=== PATIENT | female | born 1980 | race Caucasian/White ===

== ENCOUNTER 2022-08-15 06:40 | Observation (INO) | payer OTHER, SELFPAY ==
[2022-08-15] VITALS (10 sets, daily range): BP systolic 98–179; BP diastolic 63–100; PULSE 53–95; RESP 13–20; TEMP 35.9–37.1; O2SAT 97–100; BMI 30.5
--- NOTE | ~2022-08-15 | US_ITS ---
EXAMINATION: US right upper quadrant DATE: 08/15/2022 07:58 INDICATION: Epigastric and right upper quadrant abdominal pain. TECHNIQUE: Multiple grayscale and Doppler ultrasound images of the abdomen were obtained. COMPARISON: None FINDINGS: The visualized portions of the head, body, and tail of the pancreas are normal. The liver i s normal without focal lesion. There is normal flow in main portal vein. The gallbladder is normal in size and contains a gallstone. No gallbladder wall thickening or sonographic Orellana sign. The common duct is normal and measures 5 mm. IMPRESSION: 1. Cholelithiasis. No evidence of acute cholecystitis. Reviewed, dictated and finalized at location A.
--- NOTE | ~2022-08-15 | MR_ITS ---
EXAMINATION: MR MRCP wo/w con/w 3D wo ind DATE: 08/15/2022 14:28 INDICATION: Right upper quadrant pain TECHNIQUE: Magnetic resonance imaging (MRI) of the abdomen was performed without and with intravenous contrast. Sequences included coronal T2-weighted SS-FSE ARC, coronal T2-weighted FS SS-FSE, coronal T2-weighted 2D FS FIESTA, Water:Coronal LAVA-Flex, sagittal T2-weighted SS-FSE ARC, axial SSFSE ARC, axial 3D DualEcho, axial DWI B=600, axial T1-weighted LAVA, FAT:Coronal LAVA-Flex, and coronal in and opposed phase LAVA-Flex. Thick-slab T2-weighted FRFSE-XL images were obtained for magnetic resonance cholangiopancreatography (MRCP). Maximum intensity projection 3-D reconstructions of the volumetric data were created by the technologist. Postcontrast sequences included a time course of axial T1-weig hted LAVA, FAT:Coronal LAVA-Flex, coronal in and opposed phase LAVA-Flex, and Water:Coronal LAVA-Flex . COMPARISON: Ultrasound from today CONTRAST: Multihance, 13 cc FINDINGS: ABDOMEN MRI: The liver, spleen, pancreas, and adrenal glands are normal. A stone is present in the ga llbladder near the neck. There is a small amount of pericholecystic fluid. No definite gallbladder wa ll thickening is seen. The left kidney is unremarkable. There is a 9 mm cyst of the right kidney. The re are no pathologically enlarged abdominal lymph nodes. No dilated loops of bowel are present. ABDOMEN MRCP: There is no intrahepatic or extrahepatic biliary dilatation. No stones or stricture of the common bile duct. The pancreatic duct is normal in course and caliber. IMPRESSION: 1. Cholelithiasis and pericholecystic fluid. Findings are equivocal for acute cholecystitis. Consider nuclear hepatobiliary scan. Reviewed, dictated and finalized at location A. IMPRESSION: 1. Cholelithiasis and pericholecystic fluid. Findings are equivocal for acute c holecystitis. Consider nuclear hepatobiliary scan.
--- NOTE | 2022-08-15 07:13 | ED.ABDPAIN ---
HPI - Abdominal Pain General Chief Complaint: Abdominal Pain Stated Complaint: abd pain Time Seen by Provider: 08/15/22 07:03 History of Present Illness HPI narrative: Patient is a 41-year-old female with history of cholelithiasis who presents ER with epigastric and right upper quadrant abdominal pain. Sudden onset at 4:30 AM. Radiates to her back. Associate with nausea and vomiting. No diarrhea. Denies fevers or chills or sweats. Patient has history of IV drug abuse and is on Suboxone. Patient is found no alleviating factors nor aggravating factors. Related Data Allergies Allergy/AdvReac Type Severity Reaction Status Date / Time Penicillins Allergy Hives Verified 08/15/22 07:32 Review of Systems Review of Systems: All systems reviewed & are unremarkable except as noted in HPI and below Constitutional: Constitutional: Denies chills, Denies fatigue and Denies fever(s) ENT: Denies nasal congestion and Denies sore throat Cardiovascular: Cardiovascular: Denies chest pain and Denies rapid heart rate Respiratory: Respiratory: Denies cough and Denies dyspnea Gastrointestinal: Gastrointestinal: Reports abdominal pain, Denies diarrhea, Reports nausea and Reports vomiting Genitourinary: Genitourinary: Denies nocturia, Denies dysuria and Denies flank pain PMFSH Past Medical History Medical History (Updated 08/15/22 @ 09:24 by Shakir Gaspar MD) Cholelithiasis Surgical History Surgical History (Updated 08/15/22 @ 07:19 by Shakir Gaspar MD) History of section History of hand surgery right boxers fracture Social History Social History (Updated 08/15/22 @ 07:20 by Shakir Gaspar MD) Substance use: former Substance use type: opiates and IV drugs Exam Narrative: GENERAL: Uncomfortable-appearing, well-nourished, and in no acute distress. HEAD: Normocephalic, atraumatic. ENT: Mucous membranes moist. CHEST: Clear to auscultation. No respiratory distress. HEART: Regular rate and rhythm. Normal peripheral pulses. ABDOMEN: Soft, epigastric and right upper quadrant tenderness without guarding, nondistended. EXTREMITIES: Normal range of motion. No edema. SKIN: Warm, dry, no rash. NEURO: Alert and oriented x3. PSYCH: Normal mood and affect. Course Course Emergency Course: Patient with persistent pain, 7 out of 10 and earlier it was 10/10. Patient with elevated liver enzymes. Will admit for MRCP and further pain control. Vital Signs Vital signs: Vital Signs Pulse Rate 55 L 08/15/22 06:50 Respiratory Rate 18 08/15/22 06:50 Blood Pressure 179/92 H 08/15/22 06:50 Pulse Oximetry 100 08/15/22 06:50 Pulse Rate 53 L 08/15/22 08:27 Respiratory Rate 13 08/15/22 08:27 Blood Pressure 161/100 H 08/15/22 07:19 Pulse Oximetry 100 08/15/22 08:51 MDM - Abdominal Pain Lab Data 08/15/22 07:17 08/15/22 07:06 Labs: Lab Results 08/15/22 08/15/22 Range/Units 07:06 07:17 WBC 12.9 H (4.5-10.0) K/mm3 RBC 4.79 (4.2-5.4) M/mm3 Hgb 14.0 (12.0-15.0) g/dL Hct 42.7 (37.0-47.0) % MCV 89.1 (80-100) fl MCH 29.2 (26-34) pg MCHC 32.8 (32-36) g/dl RDW 13.1 (11.5-14.5) % Plt Count 372 (150-375) k/mm3 MPV 9.5 (7.4-10.4) fl Immature Gran % (Auto) 1.6 H (0-0.5) % Neut % (Auto) 63.3 (45.5-73.1) % Lymph % (Auto) 25.5 (18.3-44.2) % [place] % (Auto) 7.8 (2.6-8.5) % Eos % (Auto) 1.4 (0-4.4) % Baso % (Auto) 0.4 (0.2-1.2) % Lymph # (Auto) 3.30 H (0.9-3.2) K/mm3 [place] # (Auto) 1.0 H (0.1-0.6) K/mm3 Eos # (Auto) 0.2 (0-0.3) K/mm3 Baso # (Auto) 0.1 (0.0-0.1) K/mm3 Abs Immat Gran (auto) 0.21 H (0.00-0.031) K/mm3 Absolute Neuts (auto) 8.2 H (1.3-6.7) K/mm3 Absolute Nucleated RBC 0.0 (0.0-0.012) K/mm3 Nucleated RBC % 0.0 (0.0-0.2) % Sodium 138 (137-145) mmol/L Potassium 3.8 (3.4-5.0) mmol/L Chloride 100 (98-107) mmol/L Carbon Dioxide 32 H
[2022-08-15 07:29] LABS: Basophils Absolute Auto 0.1 K/mm3 (0.0-0.1); Basophils Percent Auto 0.4 % (0.2-1.2); Eosinophils Absolute Auto 0.2 K/mm3 (0-0.3); Eosinophils Percent Auto 1.4 % (0-4.4); Hematocrit 42.7 % (37.0-47.0); Immature Granulocyte Absolute 0.21 K/mm3 (0.00-0.031); Immature Granulocyte Percent A 1.6 % (0-0.5); Lymphocytes Percent Auto 25.5 % (18.3-44.2); Mean Corpuscular HGB Conc 32.8 g/dl (32-36); Mean Corpuscular Hemoglobin 29.2 pg (26-34); Mean Corpuscular Volume 89.1 fl (80-100); Mean Platelet Volume 9.5 fl (7.4-10.4); Monocytes Percent Auto 7.8 % (2.6-8.5); Neutrophils Absolute Auto 8.2 K/mm3 (1.3-6.7); Neutrophils Percent Auto 63.3 % (45.5-73.1); Platelet Count Result 372 k/mm3 (150-375); Red Blood Count 4.79 M/mm3 (4.2-5.4); Red Cell Distribution Width 13.1 % (11.5-14.5); White Blood Count 12.9 K/mm3 (4.5-10.0)
[2022-08-15 07:32] LABS: Alanine Aminotransferase 247 U/L (6-35); Albumin Level 4.5 g/dL (3.5-5.1); Alkaline Phosphatase 90 U/L (38-126); Anion Gap 6 mmol/L (8-16); Aspartate Amino Transferase 141 U/L (14-36); Bilirubin,Total 0.3 mg/dL (0.2-1.3); Blood Urea Nitrogen 17 mg/dL (7-17); Calcium 8.7 mg/dL (8.4-10.2); Carbon Dioxide 32 mmol/L (22-30); Chloride 100 mmol/L (98-107); Estimated CRCL calculation 92 ml/min; Estimated Glomerular Filt Rate > 60; Glucose 140 mg/dL (65-110); Lipase 75 U/L (23-300); Potassium 3.8 mmol/L (3.4-5.0); Sodium 138 mmol/L (137-145)
[2022-08-15] MEDS: KETOROLAC 30 MG/ML VIAL (*BKC) IV PUSH ×2 (07:33→10:42)
[2022-08-15] MEDS: ONDANSETRON INJ 4 MG/2 ML VIAL IV PUSH ×2 (07:33→10:43)
[2022-08-15] MEDS: SODIUM CHLORIDE 0.9% IV 1,000 ML 999 ML IV CONT (07:33)
[2022-08-15 09:53] LABS: Appearance Urine Turbid (Clear); Bacteria Urine None Seen /hpf; Bilirubin Urine Negative (Negative); Blood Urine 2+ (Negative); Color Urine Yellow (Yellow); Glucose Urine UA Negative (Negative); Ketones Urine Negative (Negative); Leukocyte Esterase Ur Negative LEU/UL (Negative); Nitrate Urine Negative (Negative); Non Pathogenic Casts 0-2; Protein Urine Negative (Negative); RBC Urine 21-50 /hpf (0-2); Specific Grav Ur 1.021 (1.001-1.035); Squamous Epithelial Cell Urine Occasional /hpf (Few); Urobilinogen Urine 0.2 mg/dL (<2.0); WBC Urine 0-5 /hpf; pH Urine 7.5 (5.0-9.0)
[2022-08-15 09:54] LABS: Add Urine Microscopic? YES
[2022-08-15] MEDS: SODIUM CHLORIDE 0.9% IV 1,000 ML 125 ML IV CONT (10:43)
--- NOTE | 2022-08-15 13:25 | PM.IMHP ---
H&P: HPI History of Present Illness Date/Time: 08/15/22 13:25 Chief Complaint: Abdominal pain. Narrative: This is a 41-year-old female with history of cholelithiasis who presented to the emergency department early this morning via private vehicle from home for evaluation of abdominal pain. Patient provides the following history. She was wakened from sleep at about 04:30 with severe pain in the epigastric and right upper quadrant regions radiating through to the back. She was feeling nauseated at that time reports having several episodes of emesis as well. Symptoms are similar to though she has experienced with previous gallbladder attacks. No fever, chills, sweats, or diarrhea. Workup in the ED was significant for a white blood cell count of 12.9, AST 141, ALT 247, total bilirubin 0.3, alkaline phosphatase 90, lipase 75. Right upper quadrant ultrasound showed cholelithiasis without evidence of acute cholecystitis. She was given a L bolus of fluid, Zofran, and Toradol without much benefit she is being admitted in this setting for supportive care and surgery consultation. Review of Systems Review of Systems: Twelve systems were reviewed and are negative except for as per HPI. [facility] Past Medical History Medical History (Updated 08/15/22 @ 13:37 by Brooke Allan PA-C) Cholelithiasis Exercise-induced asthma History of narcotic addiction On suboxone. Spinal stenosis Surgical History Surgical History (Updated 08/15/22 @ 13:31 by Brooke Allan PA-C) History of section History of hand surgery Repair right boxer's fracture. Family History Family History (Updated 08/15/22 @ 13:31 by Brooke Allan PA-C) Other Family history non-contributory Social History Social History (Updated 08/15/22 @ 13:31 by Brooke Allan PA-C) Social History: Surrogate medical decision maker: Nini Rush, mother. Code status: Full code. Smoking packs per day: 1 Smoking cigarettes per day: 20.0 Smoking status: Current every day smoker Tobacco type: cigarettes Alcohol intake: former Substance use: former Substance use type: opiates and IV drugs Lack of Transportation: No Lack of Food: Never True Current Housing: I Have Housing Concerned About Future Housing: YES Difficulty Paying Gas/Electric Bills: No Difficulty Paying for Meds: No Currently Unemployed: YES Education: Trade/Vocational Certificate Difficulty w/ Childcare or Family Care: No Additional living arrangements comments: Lives in [place]. Additional occupation/education comments: Currently unemployed. Spiritual care concerns: No Meds Home Medications and Allergies Home Medications Medication Instructions Recorded Confirmed Type albuterol sulfate 90 mcg/actuation 90 mcg inhalation Q4H PRN 08/15/22 08/15/22 History aerosol inhaler Shortness Of Breath Or Wheezing buprenorphine 8 mg-naloxone 2 mg 0.5 film buccal QID 08/15/22 08/15/22 History sublingual film (Suboxone) Allergies Allergy/AdvReac Type Severity Reaction Status Date / Time Penicillins Allergy Hives Verified 08/15/22 07:32 Vital Signs Vital Signs - 24 hr 08/15/22 06:50 08/15/22 07:17 08/15/22 07:19 Temperature Pulse Rate 55 L 56 L 58 L Respiratory Rate 18 18 18 Blood Pressure 179/92 H 161/100 H Pulse Oximetry 100 98 Oxygen Delivery 08/15/22 08:27 08/15/22 08:51 08/15/22 10:17 Temperature Pulse Rate 53 L 60 Respiratory Rate 13 18 Blood Pressure 144/63 H Pulse Oximetry 100 100 99 Oxygen Delivery 08/15/22 11:11 08/15/22 10:50 Temperature 96.8 F L Pulse Rate 57 L Respiratory Rate 16 Blood Pressure 151/73 H Pulse Oximetry 100 Oxygen Delivery Room Air H&P: Results Labs Labs: Short CBC 08/15/22 Range/Units 07:17 WBC 12.9 H (4.5-10.0) K/mm3 Hgb 14.0 (12.0-15.0) g/dL Hct 42.7 (37.0-47.0) % Plt Count 372 (150-375) k/mm3 BMP 08/15/22 07:06
[2022-08-15 14:22] LABS: Hepatitis B Surface Antigen Negative (Negative)
[2022-08-15 14:28] LABS: HAV RESULT Negative (Negative); Hepatitis B Core IgM Result Negative (Negative)
[2022-08-15 14:40] LABS: Hepatitis C Virus Antibody Negative (Negative)
--- NOTE | 2022-08-15 17:58 | PM.CNGS ---
Assessment and Plan Assessment and plan (1) Cholecystitis with cholelithiasis: Code(s): K80.10 - Calculus of gallbladder with chronic cholecystitis without obstruction Status: Acute Assessment and Plan: exam completely benign at this time, long discussion with patient regarding timing of cholecystectomy and she would like to be discharged if tolerating diet and have cholecystectomy urgently as outpatient, will start low fat diet at this time and if tolerate okay to DC from surgical standpoint with p.o. antibiotics and low fat diet, will schedule for urgent cholecystectomy as outpatient if discharged home (2) History of narcotic addiction: Code(s): F11.21 - Opioid dependence, in remission Status: Acute Assessment and Plan: avoid narcotics, continue treatment and meds (3) Tobacco abuse: Code(s): Z72.0 - Tobacco use Status: Acute Assessment and Plan: patient not interested in cessation at this time History of Present Illness Consult details Consult date: 08/15/22 Reason for consult: abdominal pain Requesting physician: Brooke Allan PA-C Narrative: The patient is old female presenting to the emergency department complaining of severe right upper quadrant, epigastric abdominal pain. The patient reports that the pain awoke her from sleep early this morning and has been unrelenting and constant since that time. The patient reports associated nausea and vomiting, anorexia. The patient reports that she has had similar episodes the past and has been diagnosed with cholelithiasis. Workup in the emergency department, including imaging, is significant for cholecystitis, cholelithiasis. The patient has been since admitted to the medical service. Upon evaluation today, the patient reports she feels much improved and is largely back to her baseline. Review of Systems Constitutional: Constitutional: Reports as per HPI, Reports anorexia, Denies chills, Denies fatigue, Denies fever(s), Denies lethargy, Denies malaise, Reports poor appetite, Denies snoring, Denies weakness, Denies weight gain and Denies weight loss Eyes: Eyes: Reports no additional eye complaints ENT: Reports system reviewed and no additional complaints, except as documented Cardiovascular: Cardiovascular: Reports no additional cardiovascular complaints Respiratory: Respiratory: Reports no additional respiratory complaints Gastrointestinal: Gastrointestinal: Reports as per HPI, Reports abdominal pain, Reports bloating, Reports GI cramping, Reports early satiety, Reports heartburn, Reports nausea and Reports vomiting Genitourinary: Genitourinary: Reports no additional female genitourinary complaints Musculoskeletal: Musculoskeletal: Reports no additional musculoskeletal complaints Integumentary/Breasts: Skin/Breast: Reports system reviewed and no additional complaints, except as docu Neurologic: Reports system reviewed and no additional complaints, except as documented Psychiatric: Psychiatric: Reports no additional psychiatric complaints Endocrine: Endocrine: Reports no additional endocrine complaints Hematologic/Lymphatic: Hematologic/Lymphatic: Reports no additional hematologic/lymphatic complaints Allergic/Immunologic: Allergic/Immunologic: Reports no additional allergic/immunologic complaints PMFSH Past Medical History Medical History Cholelithiasis Exercise-induced asthma History of narcotic addiction On suboxone. Spinal stenosis Surgical History Surgical History History of section History of hand surgery Repair right boxer's fracture. Family History Family History Other Family history non-contributory Social History Social History Social History: Surrogate medical de
--- NOTE | 2022-08-15 22:21 | PM.SD2 ---
Same Day Admit/Disch: HPI History of Present Illness Chief complaint: Abdominal pain. Narrative: This is a 41-year-old female with history of cholelithiasis who presented to the emergency department early this morning via private vehicle from home for evaluation of abdominal pain. Patient provides the following history. She was wakened from sleep at about 04:30 with severe pain in the epigastric and right upper quadrant regions radiating through to the back. She was feeling nauseated at that time reports having several episodes of emesis as well. Symptoms are similar to though she has experienced with previous gallbladder attacks. No fever, chills, sweats, or diarrhea. Workup in the ED was significant for a white blood cell count of 12.9, AST 141, ALT 247, total bilirubin 0.3, alkaline phosphatase 90, lipase 75. Right upper quadrant ultrasound showed cholelithiasis without evidence of acute cholecystitis. She was given a L bolus of fluid, Zofran, and Toradol without much benefit she is being admitted in this setting for supportive care and surgery consultation. [facility] Past Medical History Medical History Cholelithiasis Exercise-induced asthma History of narcotic addiction On suboxone. Spinal stenosis Surgical History Surgical History History of section History of hand surgery Repair right boxer's fracture. Family History Family History Other Family history non-contributory Social History Social History Social History: Surrogate medical decision maker: Nini Rush, mother. Code status: Full code. Smoking packs per day: 1 Smoking cigarettes per day: 20.0 Smoking status: Current every day smoker Alcohol intake: former Substance use: former Substance use type: opiates and IV drugs Lack of Transportation: No Lack of Food: Never True Current Housing: I Have Housing Concerned About Future Housing: YES Difficulty Paying Gas/Electric Bills: No Difficulty Paying for Meds: No Currently Unemployed: YES Education: Trade/Vocational Certificate Difficulty w/ Childcare or Family Care: No Additional living arrangements comments: Lives in [place]. Additional occupation/education comments: Currently unemployed. Spiritual care concerns: No Same Day Admit/Disch: Med Pre-admit Medications Home Medications Medication Instructions Recorded Confirmed Type albuterol sulfate 90 mcg/actuation 90 mcg inhalation Q4H PRN 08/15/22 08/16/22 History aerosol inhaler Shortness Of Breath Or Wheezing buprenorphine 8 mg-naloxone 2 mg 0.5 film buccal QID 08/15/22 08/16/22 History sublingual film (Suboxone) Exam Narrative: General: Well-developed, nontoxic-appearing female supine in bed in no distress. Weight: 70.9 kg. BMI: 30.5. HEENT: Normocephalic, atraumatic. PERRL, EOMI. Sclera anicteric. Oral mucosa moist. Neck: Supple. Respiratory: Lungs are clear to auscultation bilaterally. Cardiovascular: Regular rate and rhythm with S1-S2. Gastrointestinal: Abdomen is soft and nondistended with positive bowel sounds. She is tender to deep palpation the right upper quadrant. Negative Orellana sign. No guarding or rebound tenderness. Skin: Warm and dry. Extremities: No cyanosis, clubbing, or edema. Radial and pedal pulses intact. Neurological: Alert. Cranial nerves 2-12 are grossly intact. Speech is clear. No facial asymmetry. No gross focal deficits to casual conversation. Psychiatric: Pleasant and cooperative with normal mood and affect. Judgment and insight intact. DS: Data Data Completed and Pending Completed studies during hospitalization: Imaging Upper Quadrant Ultrasound 08/15/22 08:01 IMPRESSION: 1. Cholelithiasis. No evidence of acute chol
--- NOTE | 2022-08-16 04:36 | PC.NURSE ---
Pt called at 0425, pt states I am feeling 5/10 pain. I think I took 2 of 500mg Ibuprofen. Pt was instructed to take alternate ibuprofen and Tylenol as needed until pt is able to call Dr. Miller office for further instructions on plan of care.
== END 2022-08-15 23:00 | disposition home or self-care (01) ==
LOC: ANHED 09:24 → ANH3MEDSUR 09:45
PROVIDERS: Emergency Medicine; Physician Assistant; Admitting Provider Family Medicine; Emergency Provider Emergency Medicine; Visit Provider Family Medicine
DX: K80.10 Calculus of gallbladder with chronic cholecystitis without obstruction (principal); D72.829 Elevated white blood cell count, unspecified; R74.01 Elevation of levels of liver transaminase levels; R63.0 Anorexia; Z68.30 Body mass index [BMI] 30.0-30.9, adult; F17.210 Nicotine dependence, cigarettes, uncomplicated; F11.21 Opioid dependence, in remission; Z79.51 Long term (current) use of inhaled steroids
CPT/HCPCS: 36415; 74183; 76376; 76705; 80053; 80074; 81001; 81025; 83690; 85025; 96361; 96374; 96375; 96376; 99285; A9577; G0378; G0379; J1885; J2405; J7030

== ENCOUNTER 2022-08-16 08:46 | Observation (INO) | payer OTHER, SELFPAY ==
[2022-08-16] VITALS (10 sets, daily range): BP systolic 143–172; BP diastolic 63–96; PULSE 58–74; RESP 16–18; TEMP 36.4–36.9; O2SAT 97–100; BMI 29.2
--- NOTE | 2022-08-16 09:28 | ED.ABDPAIN ---
HPI - Abdominal Pain General Chief Complaint: Abdominal Pain <ESTEPHANIA Miramontes Last Filed: 08/16/22 11:53> Stated Complaint: returning for gallbladder issues <ESTEPHANIA Miramontes Last Filed: 08/16/22 11:53> Time Seen by Provider: 08/16/22 08:57 <ESTEPHANIA Miramontes Last Filed: 08/16/22 11:53> Source: patient and old records reviewed <ESTEPHANIA Miramontes Last Filed: 08/16/22 11:53> Mode of arrival: ambulatory <ESTEPHANIA Miramontes Last Filed: 08/16/22 11:53> Limitations: no limitations <ESTEPAHNIA Miramontes Last Filed: 08/16/22 11:53> History of Present Illness HPI narrative: Patient is a 41-year-old female who presents ED with report of right upper quadrant abdominal pain. Patient reports she was seen in the ED yesterday and diagnosed with cholelithiasis. She was admitted to the hospitalist service and seen by general surgery. She underwent MRCP that showed cholelithiasis with pericholecystic fluid, equivocal for acute cholecystitis. Recommended HIDA scan. Patient was feeling much better yesterday evening while inpatient, pain had improved. She wanted to try going home and have outpatient cholecystectomy. Was discharged. Patient reports she developed worsening pain around 4:30 AM this morning after eating a bag of chips. Pain has been constant since then. She tried taking ibuprofen without relief. She reports nausea, but denies vomiting. Denies fevers. Denies diarrhea or constipation. Patient has a history of narcotic abuse and is on Suboxone. <ESTEPHANIA Miramontes Last Filed: 08/16/22 11:53> Related Data Home Medications: Home Medications Medication Instructions Recorded Confirmed albuterol sulfate 90 mcg/actuation 90 mcg inhalation Q4H PRN 08/15/22 08/16/22 aerosol inhaler Shortness Of Breath Or Wheezing buprenorphine 8 mg-naloxone 2 mg 0.5 film buccal QID 08/15/22 08/16/22 sublingual film (Suboxone) <Mi Jones PA-C - Last Filed: 08/16/22 11:53> Allergies/Adverse Reactions: Allergies Allergy/AdvReac Type Severity Reaction Status Date / Time Penicillins Allergy Hives Verified 08/16/22 12:25 <Mi Jones PA-C - Last Filed: 08/16/22 11:53> Review of Systems Review of Systems: CONSTITUTIONAL: Denies fever, chills, or sweats. CARDIOVASCULAR: Denies chest pain. RESPIRATORY: Denies dyspnea. GASTROINTESTINAL: See HPI. GENITOURINARY: Denies dysuria or hematuria. SKIN: Denies rash or itching. MUSCULOSKELETAL: Denies back pain, joint pain, or myalgia. <Mi Jones PA-C - Last Filed: 08/16/22 11:53> All systems reviewed & are unremarkable except as noted in HPI and below <Mi Jones PA-C - Last Filed: 08/16/22 11:53> [facility] Past Medical History Medical History: Medical History Cholelithiasis Exercise-induced asthma History of narcotic addiction On suboxone. Spinal stenosis <ESTEPHANIA Miramontes Last Filed: 08/16/22 11:53> Surgical History Surgical History: Surgical History History of section History of hand surgery Repair right boxer's fracture. <ESTEPHANIA Miramontes Last Filed: 08/16/22 11:53> Family History Family History: Family History Other Family history non-contributory <ESTEPHANIA Miramontes Last Filed: 08/16/22 11:53> Social History Social History: Social History Social History: Surrogate medical decision maker: Nini Rush, mother. Code status: Full code. Smoking packs per day: 1 Smoking cigarettes per day: 20.0 Smoking status: Current every day smoker Alcohol intake: former Substance use: former Substance use type: former substance user
[2022-08-16] MEDS: SODIUM CHLORIDE 0.9% IV 1,000 ML 999 ML IV CONT (09:33)
[2022-08-16] MEDS: ONDANSETRON INJ 4 MG/2 ML VIAL IV PUSH ×4 (09:34→16:26)
[2022-08-16] MEDS: MORPHINE SULFATE (*CRX) 4 MG/ML INJ IV PUSH (09:34)
[2022-08-16 10:25] LABS: Basophils Absolute Auto 0.1 K/mm3 (0.0-0.1); Basophils Percent Auto 0.3 % (0.2-1.2); Eosinophils Absolute Auto 0.1 K/mm3 (0-0.3); Eosinophils Percent Auto 0.7 % (0-4.4); Hematocrit 40.2 % (37.0-47.0); Hemoglobin 13.4 g/dL (12.0-15.0); Immature Granulocyte Absolute 0.14 K/mm3 (0.00-0.031); Immature Granulocyte Percent A 0.9 % (0-0.5); Lymphocytes Absolute Auto 2.15 K/mm3 (0.9-3.2); Lymphocytes Percent Auto 13.3 % (18.3-44.2); Mean Corpuscular HGB Conc 33.3 g/dl (32-36); Mean Corpuscular Hemoglobin 29.8 pg (26-34); Mean Corpuscular Volume 89.5 fl (80-100); Mean Platelet Volume 9.4 fl (7.4-10.4); Monocytes Percent Auto 6.4 % (2.6-8.5); Neutrophils Absolute Auto 12.7 K/mm3 (1.3-6.7); Neutrophils Percent Auto 78.4 % (45.5-73.1); Platelet Count Result 330 k/mm3 (150-375); Red Blood Count 4.49 M/mm3 (4.2-5.4); Red Cell Distribution Width 13.3 % (11.5-14.5); White Blood Count 16.2 K/mm3 (4.5-10.0)
[2022-08-16 10:37] LABS: Alanine Aminotransferase 158 U/L (6-35); Albumin Level 4.2 g/dL (3.5-5.1); Alkaline Phosphatase 95 U/L (38-126); Anion Gap 8 mmol/L (8-16); Aspartate Amino Transferase 55 U/L (14-36); Bilirubin,Total 0.3 mg/dL (0.2-1.3); Blood Urea Nitrogen 17 mg/dL (7-17); Calcium 8.4 mg/dL (8.4-10.2); Carbon Dioxide 28 mmol/L (22-30); Chloride 102 mmol/L (98-107); Estimated CRCL calculation 108 ml/min; Estimated Glomerular Filt Rate > 60; Glucose 127 mg/dL (65-110); Lipase 64 U/L (23-300); Potassium 3.7 mmol/L (3.4-5.0); Sodium 138 mmol/L (137-145)
[2022-08-16] MEDS: HYDROmorphone HCL INJ (*CRX) 1 MG/ML SYR IV PUSH (10:52)
[2022-08-16] MEDS: metroNIDAZOLE 500 MG/ISO 100ML 500 MG/100 ML BAG 100 MG IVPB ×2 (11:14→20:10)
--- NOTE | 2022-08-16 12:25 | ADMGEN ---
This patient, Keara Rush, was admitted to Medical Room 261-01. Patient/family oriented to hospital policies and general routines including ID bracelet, bed and alarms, visiting hours, pain management, procedures, bathroom and other care routines, personal items, smoking policy, room service/diet, and visiting hours. Information on how to activate the Rapid Response Team has been discussed. Patient/Family are encouraged to report perceived risks to care and to ask questions if they do not understand what they are told or what they should do.
[2022-08-16] MEDS: SODIUM CHLORIDE 0.9% IV 1,000 ML 100 ML IV CONT ×2 (12:32→23:08)
[2022-08-16] MEDS: HYDROmorphone HCL INJ (*CRX) 1 MG/ML SYR 0.5 MG IV PUSH ×2 (12:47→16:26)
[2022-08-16 14:02] LABS: Beta HCG Quantitative < 2.39 mIU/ML
--- NOTE | 2022-08-16 14:09 | PM.IMHP ---
H&P: HPI History of Present Illness Date/Time: 08/16/22 14:10 Chief Complaint: Abdominal pain. Narrative: This is a 41-year-old female with history of cholelithiasis who presented to the emergency department via private vehicle from home for evaluation of abdominal pain. She was admitted to the hospital yesterday morning with symptomatic cholelithiasis and she improved significantly with supportive care and was tolerating a low-fat diet. She was eager for discharge and Dr. Miller felt she could be discharged home last evening with urgent outpatient cholecystectomy. After discharge she took a shower and not long after she got home she had a bag of chips as she was hungry. Once again she was wakened from sleep with severe right upper quadrant pain and nausea. She return to the ED and her labs today are significant for a WBC count of 16.2, AST, ALT 158, lipase 64. Blood pressures are running a bit high in the 150s but her other vital signs are stable and she has been afebrile. Review of Systems Review of Systems: Twelve systems were reviewed and are negative except for as per HPI. [facility] Past Medical History Medical History Cholelithiasis Exercise-induced asthma History of narcotic addiction On suboxone. Spinal stenosis Surgical History Surgical History History of section History of hand surgery Repair right boxer's fracture. Family History Family History Other Family history non-contributory Social History Social History Social History: Surrogate medical decision maker: Nini Rush, mother. Code status: Full code. Smoking packs per day: 1 Smoking cigarettes per day: 20.0 Smoking status: Current every day smoker Alcohol intake: former Substance use: former Substance use type: former substance user Lack of Transportation: No Lack of Food: Sometimes True Current Housing: I Have Housing Concerned About Future Housing: YES Difficulty Paying Gas/Electric Bills: No Difficulty Paying for Meds: YES Currently Unemployed: YES Education: Trade/Vocational Certificate Difficulty w/ Childcare or Family Care: No Additional living arrangements comments: Lives in [place]. Additional occupation/education comments: Currently unemployed. Spiritual care concerns: No Meds Home Medications and Allergies Home Medications Medication Instructions Recorded Confirmed Type albuterol sulfate 90 mcg/actuation 90 mcg inhalation Q4H PRN 08/15/22 08/16/22 History aerosol inhaler Shortness Of Breath Or Wheezing buprenorphine 8 mg-naloxone 2 mg 0.5 film buccal QID 08/15/22 08/16/22 History sublingual film (Suboxone) Allergies Allergy/AdvReac Type Severity Reaction Status Date / Time Penicillins Allergy Hives Verified 08/16/22 12:25 Vital Signs Vital Signs - 24 hr 08/16/22 08:55 08/16/22 09:21 08/16/22 09:41 Temperature 97.8 F Pulse Rate 71 Respiratory Rate 16 Blood Pressure 172/96 H 151/67 H Pulse Oximetry 98 97 98 Oxygen Delivery 08/16/22 09:53 08/16/22 10:00 08/16/22 10:24 Temperature Pulse Rate Respiratory Rate Blood Pressure Pulse Oximetry 97 97 98 Oxygen Delivery 08/16/22 10:30 08/16/22 12:30 08/16/22 14:00 Temperature 97.6 F Pulse Rate 74 Respiratory Rate 18 Blood Pressure 155/75 H Pulse Oximetry 100 98 Oxygen Delivery Room Air Exam Narrative: General: Well-developed female lying on her right side in bed in moderate pain. Weight: 67.8 kg. BMI: 29.2. HEENT: PERRL, EOMI. Sclera anicteric. Tacky mucous membranes. Neck: Supple. Respiratory: Lungs are clear to auscultation bilaterally. Cardiovascular: Regular rate and rhythm with S1-S2. Gastrointestinal: Abdo
--- NOTE | 2022-08-16 16:54 | PM.CNGS ---
Assessment and Plan Assessment and plan (1) Cholecystitis with cholelithiasis: Qualifiers: Biliary obstruction: without biliary obstruction Cholecystitis acuity: acute Cholelithiasis location: gallbladder Qualified Code(s): K80.00 - Calculus of gallbladder with acute cholecystitis without obstruction Code(s): K80.10 - Calculus of gallbladder with chronic cholecystitis without obstruction Status: Acute Assessment and Plan: IV abx, OR tomorrow for urgent cholecystectomy History of Present Illness Consult details Consult date: 08/16/22 Reason for consult: abdominal pain Requesting physician: Mi Jones PA-C Narrative: The pt is a 41 y/o F that was recently discharged home c plans for urgent outpt cholecystectomy representing to ED c/o severe upper abd pain, N/V. Pt was doing well but reported that she had a bag of chips after dc last night. Pt awoke in the middle of the night c recurrent sx and pain was severe and uncontrollable c po analgesia. Pt also c N/V. Review of Systems Review of Systems: All systems reviewed & are unremarkable except as noted in HPI and below PMFSH Past Medical History Medical History Cholelithiasis Exercise-induced asthma History of narcotic addiction On suboxone. Spinal stenosis Surgical History Surgical History History of section History of hand surgery Repair right boxer's fracture. Family History Family History Other Family history non-contributory Social History Social History Social History: Surrogate medical decision maker: Nini Rush, mother. Code status: Full code. Smoking packs per day: 1 Smoking cigarettes per day: 20.0 Smoking status: Current every day smoker Alcohol intake: former Substance use: former Substance use type: former substance user Lack of Transportation: No Lack of Food: Sometimes True Current Housing: I Have Housing Concerned About Future Housing: YES Difficulty Paying Gas/Electric Bills: No Difficulty Paying for Meds: YES Currently Unemployed: YES Education: Trade/Vocational Certificate Difficulty w/ Childcare or Family Care: No Additional living arrangements comments: Lives in [place]. Additional occupation/education comments: Currently unemployed. Spiritual care concerns: No Meds Home Medications and Allergies Home Medications Medication Instructions Recorded Confirmed Type albuterol sulfate 90 mcg/actuation 90 mcg inhalation Q4H PRN 08/15/22 08/16/22 History aerosol inhaler Shortness Of Breath Or Wheezing buprenorphine 8 mg-naloxone 2 mg 0.5 film buccal QID 08/15/22 08/16/22 History sublingual film (Suboxone) Allergies Allergy/AdvReac Type Severity Reaction Status Date / Time Penicillins Allergy Hives Verified 08/16/22 12:25 Vital Signs Vital Signs - 24 hr 08/16/22 08:55 08/16/22 09:21 08/16/22 09:41 Temperature 36.6 C Pulse Rate 71 Respiratory Rate 16 Blood Pressure 172/96 H 151/67 H Pulse Oximetry 98 97 98 Oxygen Delivery 08/16/22 09:53 08/16/22 10:00 08/16/22 10:24 Temperature Pulse Rate Respiratory Rate Blood Pressure Pulse Oximetry 97 97 98 Oxygen Delivery 08/16/22 10:30 08/16/22 12:30 08/16/22 14:00 Temperature 36.4 C Pulse Rate 74 Respiratory Rate 18 Blood Pressure 155/75 H Pulse Oximetry 100 98 Oxygen Delivery Room Air 08/16/22 14:40 Temperature 36.4 C Pulse Rate 58 L Respiratory Rate 18 Blood Pressure 164/80 H Pulse Oximetry 97 Oxygen Delivery Exam Const: General: cooperative, no acute distress, uncomfortable and overweight HENMT: Head: normal to inspection, normocephalic and atraumatic Eyes: General: appearance normal, both eyes
[2022-08-16] MEDS: PROMETHAZINE HCL 25 MG/ML AMPUL 12.5 MG IV PUSH (20:08)
[2022-08-16] MEDS: ACETAMINOPHEN 325 MG TABLET 650 MG PO (23:05)
--- NOTE | 2022-08-17 18:33 | OP_ITS ---
DATE OF PROCEDURE: 08/17/2022 PREOPERATIVE DIAGNOSIS: Acute cholecystitis, cholelithiasis. POSTOPERATIVE DIAGNOSIS: Acute cholecystitis, cholelithiasis, hydrops, cholecystitis. ANESTHESIA: General. ESTIMATED BLOOD LOSS: 10. COMPLICATIONS: None. BRIEF HISTORY: This is a 41-year-old female presenting to the emergency department complaining of severe right upper quadrant upper gastric abdominal pain. Workup in the emergency department including imaging significant for acute cholecystitis. INDICATIONS FOR SURGERY: A 41-year-old female with acute cholecystitis, cholelithiasis. OPERATIVE FINDINGS: Acute hydrops, cholecystitis. DESCRIPTION OF PROCEDURE: The patient was taken to the operating room and placed in the supine position. After adequate induction of general anesthesia, the patient was prepped and draped in the normal sterile fashion. A time-out was then done and verified the patient's identify as well as the procedure being performed. I began by making a 5 mm incision in the infra-umbilical region, through this a Veress needle was placed into the peritoneal cavity. CO2 gas was then insufflated through the Veress needle. After adequate pneumoperitoneum was achieved, the Veress needle was removed. I then placed a 5 mm Optiview trocar under direct visualization into this incision. Once in the peritoneum, the obturator was removed just leaving the trocar in the abdomen. The laparoscope was then placed through this trocar site. Under direct visualization, I placed a further 12 mm subxiphoid port, as well as 2 additional 5 mm ports in the right abdomen. The gallbladder was identified and noted to be severely distended and inflamed. There were multiple omental adhesions to the gallbladder all indicative of acute inflammation. These adhesions were taken down both bluntly and sharply with Bovie cautery. At this point, the gall bladder was decompressed with an ovarian needle. Hydrops cholecystitis was identified at this point. Once decompressed, I was able to place a grasper at the dome of the gallbladder. This was retracted superiorly and anteriorly up over the liver. A second retractor was placed in infundibulum and retracted laterally. This allowed us to visualize the elements of the triangle of Calot. Using very careful lateral to medial dissection, I was able to identify all elements of the triangle of Calot. The cystic duct was noted in its entirety from its proximal insertion into the gallbladder to its distal junction with a common hepatic and common bile duct junction. At this point, a proximal cystic duct was further skeletonized, clipped, and transected. The cystic artery was then visualized in its entirety. Again, this structure was skeletonized, clipped, and transected. At this point, I used a Bovie cautery to take down the peritoneal attachments to the gallbladder of the underlying liver bed. This was somewhat difficult given the amount of inflammation in the posterior space. Once the gallbladder specimen was completely detached, an Endopouch was placed through the 12 mm port site and the gallbladder specimen was then removed. It all be sent to pathology for further review. At this point, I copiously irrigated the right upper quadrant. Some mild oozing was noted in the liver bed and controlled with the Bovie cautery. No other pathology was noted. At this point, the 12 mm trocar was removed and a johnny cone was placed through the trocar site. Under direct visualization, the fascia was closed with a 0 Vicryl suture using the johnny cone and a suture passer. The abdomen was then desufflated and all ports were removed. The skin was closed with 4-0 Monocryl subcuticular suture at all incisions. The patient tolerated the procedure well and was extubated postoperatively. Sh
[2022-08-17 21:00] VITALS: BP 120/74; PULSE 92; RESP 16; TEMP 37.2; O2SAT 97
[2022-08-17] MEDS: metroNIDAZOLE 500 MG/ISO 100ML 500 MG/100 ML BAG 100 MG IVPB (21:30)
[2022-08-17] MEDS: HYDROcodone/acetaminophen (*CRX) 5-325 MG TABLET 1 TAB PO (21:31)
--- NOTE | 2022-08-17 21:37 | PC.NURSE ---
Paper documentation exists on this patient due to [facility] downtime on 08/17/22 from 0030 to [1930] .
[2022-08-18 00:59] VITALS: BP 113/75; PULSE 67; RESP 16; TEMP 36.6; O2SAT 99
[2022-08-18] MEDS: HYDROcodone/acetaminophen (*CRX) 5-325 MG TABLET 1 TAB PO ×3 (02:47→15:12)
[2022-08-18 05:22] LABS: Basophils Percent Auto 0.2 % (0.2-1.2); Eosinophils Percent Auto 0.2 % (0-4.4); Hematocrit 38.9 % (37.0-47.0); Hemoglobin 12.6 g/dL (12.0-15.0); Immature Granulocyte Absolute 0.12 K/mm3 (0.00-0.031); Immature Granulocyte Percent A 0.7 % (0-0.5); Lymphocytes Absolute Auto 2.44 K/mm3 (0.9-3.2); Lymphocytes Percent Auto 13.8 % (18.3-44.2); Mean Corpuscular HGB Conc 32.4 g/dl (32-36); Mean Corpuscular Hemoglobin 29.6 pg (26-34); Mean Corpuscular Volume 91.3 fl (80-100); Mean Platelet Volume 9.6 fl (7.4-10.4); Monocytes Absolute Auto 1.5 K/mm3 (0.1-0.6); Monocytes Percent Auto 8.6 % (2.6-8.5); Neutrophils Absolute Auto 13.6 K/mm3 (1.3-6.7); Neutrophils Percent Auto 76.5 % (45.5-73.1); Platelet Count Result 326 k/mm3 (150-375); Red Blood Count 4.26 M/mm3 (4.2-5.4); Red Cell Distribution Width 13.2 % (11.5-14.5); White Blood Count 17.7 K/mm3 (4.5-10.0)
[2022-08-18 05:32] VITALS: BP 97/60; PULSE 82; RESP 16; TEMP 36.5; O2SAT 100
[2022-08-18 05:34] LABS: Alanine Aminotransferase 109 U/L (6-35); Albumin Level 4.1 g/dL (3.5-5.1); Alkaline Phosphatase 86 U/L (38-126); Anion Gap 9 mmol/L (8-16); Aspartate Amino Transferase 57 U/L (14-36); Bilirubin,Total 0.3 mg/dL (0.2-1.3); Blood Urea Nitrogen 8 mg/dL (7-17); Calcium 8.8 mg/dL (8.4-10.2); Carbon Dioxide 26 mmol/L (22-30); Chloride 103 mmol/L (98-107); Estimated CRCL calculation 108 ml/min; Estimated Glomerular Filt Rate > 60; Glucose 109 mg/dL (65-110); Potassium 3.6 mmol/L (3.4-5.0); Sodium 138 mmol/L (137-145)
[2022-08-18] MEDS: metroNIDAZOLE 500 MG/ISO 100ML 500 MG/100 ML BAG 100 MG IVPB (06:18)
[2022-08-18 08:01] LABS: Chloride 100 mmol/L (98-107); Hematocrit 44.3 % (37.0-47.0); Hemoglobin 15.1 g/dL (12.0-15.0); Mean Corpuscular HGB Conc 34.1 g/dl (32-36); Mean Corpuscular Volume 87.9 fl (80-100); Mean Platelet Volume 9.4 fl (7.4-10.4); Platelet Count Result 358 k/mm3 (150-375); Potassium 3.9 mmol/L (3.4-5.0); Red Blood Count 5.04 M/mm3 (4.2-5.4); Red Cell Distribution Width 13.3 % (11.5-14.5); Sodium 134 mmol/L (137-145); White Blood Count 17.8 K/mm3 (4.5-10.0)
[2022-08-18 08:02] LABS: Anion Gap 6 mmol/L (8-16); Aspartate Amino Transferase 39 U/L (14-36); Bilirubin,Total 0.7 mg/dL (0.2-1.3); Blood Urea Nitrogen 5 mg/dL (7-17); Carbon Dioxide 28 mmol/L (22-30); Estimated CRCL calculation 142 ml/min; Estimated Glomerular Filt Rate > 60; Glucose 110 mg/dL (65-110); Magnesium 2.1 mg/dL (1.6-2.3)
[2022-08-18 08:05] LABS: Alanine Aminotransferase 140 U/L (6-35); Albumin Level 4.2 g/dL (3.5-5.1); Alkaline Phosphatase 98 U/L (38-126); Total Protein 7.6 g/dL (6.3-8.2)
--- NOTE | 2022-08-18 09:35 | PM.PNGS ---
Progress Note: A&P Assessment and Plan (1) Cholecystitis with cholelithiasis: Qualifiers: Biliary obstruction: without biliary obstruction Cholecystitis acuity: acute Cholelithiasis location: gallbladder Qualified Code(s): K80.00 - Calculus of gallbladder with acute cholecystitis without obstruction Code(s): K80.10 - Calculus of gallbladder with chronic cholecystitis without obstruction Status: Acute Assessment and Plan: doing well, cont routine postop care, home c po analgesia and f/u in 2 wks Subjective Subjective Date/Time Seen: 08/18/22 09:35 Interval history: feels good, mild incisional soreness, mike diet Review of Systems Review of Systems: All systems reviewed & are unremarkable except as noted in HPI and below Exam Const: General: cooperative, comfortable and no acute distress GI: Inspection: normal to inspection, distended and incision GI Palp: Yes abdominal tenderness, Yes Soft to palpation, Yes Tenderness to palpation present (GI), No Guarding due to palpation present (GI) and No Rigid due to palpation Objective Data Vital Signs Vital Signs: Vital Signs - 24 hr 08/17/22 21:00 08/18/22 00:59 08/18/22 05:32 Temperature 37.2 C 36.6 C 36.5 C Pulse Rate 92 67 82 Respiratory Rate 16 16 16 Blood Pressure 120/74 113/75 97/60 L Pulse Oximetry 97 99 100 Oxygen Delivery 08/18/22 07:40 Temperature Pulse Rate Respiratory Rate Blood Pressure Pulse Oximetry Oxygen Delivery Room Air Intake/Output Intake/Output: Intake & Output 08/15/22 08/16/22 08/17/22 08/18/22 23:59 23:59 23:59 23:59 Intake Total 2250 100 1020 Balance 2250 100 1020 Meds/Results Medications: Active Medications Generic Name Dose Route Start Last Admin Trade Name Freq PRN Reason Stop Dose Admin Acetaminophen 650 mg 08/16/22 22:46 08/16/22 23:05 Acetaminophen 325 Mg Tablet PO 650 mg Q4H PRN Administration Headache Hydrocodone Bitart/Acetaminophen 1 tab 08/17/22 17:59 08/18/22 07:38 Hydrocodone/Acetaminophen (*Crx) 5-325 Mg Tablet PO 1 tab Q4H PRN Administration Pain Rated 4-6 Albuterol 1 puff 08/16/22 14:36 Albuterol Sulfate (*Sp) Aerosol 1 Puff INHALATION Q4H PRN Shortness Of Breath Or Wheezing Hydromorphone HCl 0.5 mg 08/16/22 12:37 08/16/22 16:26 Hydromorphone Hcl Inj (*Crx) 1 Mg/Ml Syr IV PUSH 0.5 mg Q4H PRN Administration Pain Rated 7-10 Ceftriaxone Sodium 1 gm in 50 mls @ 100 mls/hr 08/17/22 09:00 08/18/22 09:02 Rocephin 1 Gm/Ns 50 Ml IVPB Infused Q24H KRYSTAL Infusion Metronidazole 500 mg in 100 mls @ 100 mls/hr 08/16/22 21:00 08/18/22 07:18 Flagyl 500 Mg/Iso Soln 100 Ml IVPB Infused Q8HR KRYSTAL Infusion Ondansetron HCl 4 mg 08/16/22 11:39 08/16/22 16:26 Ondansetron Inj 4 Mg/2 Ml Vial IV PUSH 4 mg Q4H PRN Administration Nausea Labs Labs: Laboratory Results - last 24 hr 08/17/22 08/18/22 05:00 05:03 WBC 17.8 H 17.7 H RBC 5.04 4.26 Hgb 15.1 H 12.6 Hct 44.3 38.9 MCV 87.9 91.3 MCH 30.0 29.6 MCHC 34.1 32.4 RDW 13.3 13.2 Plt Count 358 326 MPV 9.4 9.6 Immature Gran % (Auto) 0.7 H Neut % (Auto) 76.5 H Lymph % (Auto) 13.8 L [place] % (Auto) 8.6 H Eos % (Auto) 0.2 Baso % (Auto) 0.2 Lymph # (Auto) 2.44 [place] # (Auto) 1.5 H Eos # (Auto) 0.0 Baso # (Auto) 0.0 Abs Immat Gran (auto) 0.12 H Absolute Neuts (auto) 13.6 H Absolute Nucleated RBC 0.0 Nucleated RBC % 0.0 Sodium 134 L 138 Potassium 3.9 3.6 Chloride 100 103 Carbon Dioxide 28 26 Anion Gap 6 L 9 BUN 5 L D 8 Creatinine 0.40 L 0.50 L Estim Creat Clear Calc 142 108 Estimated GFR > 60 > 60 Glucose 110 109 Calcium 9.0 8.8 Magnesium 2.1 Total Bilirubin 0.7 0.3 AST 39 H 57 H ALT 140 H 109 H Alkaline Phosphatase 98 86 Total Protein 7.6 7.0 Albumin 4.2 4.1
[2022-08-18 10:01] VITALS: PULSE 86; RESP 18; TEMP 36.4; O2SAT 99
--- NOTE | 2022-08-18 10:24 | PM.DS ---
DS: Admitting Diagnosis Discharge Date 08/18/2022 Admitting Diagnosis Acute cholecystitis Elevated blood pressure without diagnosis or hypertension Transaminitis DS: Discharge Diagnosis Discharge Diagnosis (1) Cholecystitis with cholelithiasis: Qualifiers: Biliary obstruction: without biliary obstruction Cholecystitis acuity: acute Cholelithiasis location: gallbladder Qualified Code(s): K80.00 - Calculus of gallbladder with acute cholecystitis without obstruction Code(s): K80.10 - Calculus of gallbladder with chronic cholecystitis without obstruction Status: Acute (2) Elevated blood pressure reading: Code(s): R03.0 - Elevated blood-pressure reading, without diagnosis of hypertension Status: Acute (3) Transaminitis: Code(s): R74.01 - Elevation of levels of liver transaminase levels Status: Acute (4) History of narcotic addiction: Code(s): F11.21 - Opioid dependence, in remission Status: Acute (5) Tobacco abuse: Code(s): Z72.0 - Tobacco use Status: Acute DS: Summary Hospital Course Reason for hospitalization: abdominal pain Hospital Course: Patient is a 41-year-old female with history of cholelithiasis who presented to the emergency department via private vehicle from home for evaluation of abdominal pain. She was admitted to the hospital 08/15/22 in the morning with symptomatic cholelithiasis and she improved significantly with supportive care and was tolerating a low-fat diet. She was eager for discharge and Dr. Miller with General Surgery evaluated her and felt she could be discharged home that evening with urgent outpatient lap cholecystectomy. After discharge she took a shower and not long after she got home she had a bag of chips, as she was hungry. Once again, she was wakened from sleep with severe right upper quadrant pain and nausea. She return to the ED and her labs significant for a WBC count of 16.2, AST, ALT 158, lipase 64. Blood pressures were running a bit high in the 150s but her other vital signs are stable and she has been afebrile. She was started on IV fluids, bowel rest, IV Rocephin 1 gram Q24 hours, IV metronidazole, IV dilaudid PRN and IV antiemetics. She underwent laparoscopic cholecystectomy on 08/17/22 without complications. Her diet was advanced with good tolerance and pain was controlled with oral Mascot PRN. Antibiotics were stopped given source control. Repeat chemistry showed improving transaminitis. She was discharged home in stable condition. She was counseled on low-fat diet, pain control, bowel regimen, activity restrictions and surgery site care. She was discharged home afebrile and in stable condition. Time spent discussing smoking cessation with patient: 3 to 10 minutes Status at Discharge Cognitive/behavioral status at discharge: AAOx4, baseline Functional status at discharge: independent ambulation Overall status at discharge: patient is progressing back to baseline Time Spent with Patient Time attestation: Total time spent providing and/or coordinating discharge services: Time spent: Greater than 30 minutes Exam Narrative: Temp Pulse Resp BP Pulse Ox O2 Del Method 97.6 F 68 18 96/64 L 99 Room Air 08/18/22 14:05 08/18/22 14:05 08/18/22 14:05 08/18/22 14:05 08/18/22 14:05 08/18/22 07:40 General: Well-developed female lying in bed. No acute distress. Non-toxic appearing. BMI: 29.2. HEENT: Normocephalic. PERRL. Sclera anicteric. Moist mucous membranes. Neck: Supple. Respiratory: Lungs are clear to auscultation bilaterally. RR regular. Cardiovascular: Regular rate and rhythm with S1-S2. No murmurs. Gastrointestinal: Abdomen is soft, mildly distended, tender to palpation at lap sites & RUQ. Bowel sounds present. Flatus present
[2022-08-18 10:39] VITALS: BP 94/64
[2022-08-18] MEDS: SENNA/DOCUSATE SODIUM TABLET 2 TAB PO (11:59)
--- NOTE | 2022-08-18 13:30 | WPDANESPN ---
Anes - Prog Note Post-Op Date/Time: 08/18/22 13:30 Vital Signs: Last Vital Signs Temp 36.4 C 08/18/22 10:01 Pulse 86 08/18/22 10:01 Resp 18 08/18/22 10:01 BP 94/64 L 08/18/22 10:39 Pulse Ox 99 08/18/22 10:01 O2 Del Method Room Air 08/18/22 07:40 Pain Score (VAS): 0 I/O: Intake & Output 08/17/22 08/18/22 08/18/22 23:59 07:59 15:59 Intake Total 100 750 510 Balance 100 750 510 Laboratory Tests 08/18/22 05:03 08/18/22 05:03 08/17/22 08/18/22 05:00 05:03 WBC 17.8 H 17.7 H RBC 5.04 4.26 Hgb 15.1 H 12.6 Hct 44.3 38.9 MCV 87.9 91.3 MCH 30.0 29.6 MCHC 34.1 32.4 RDW 13.3 13.2 Plt Count 358 326 MPV 9.4 9.6 Immature Gran % (Auto) 0.7 H Neut % (Auto) 76.5 H Lymph % (Auto) 13.8 L [place] % (Auto) 8.6 H Eos % (Auto) 0.2 Baso % (Auto) 0.2 Lymph # (Auto) 2.44 [place] # (Auto) 1.5 H Eos # (Auto) 0.0 Baso # (Auto) 0.0 Abs Immat Gran (auto) 0.12 H Absolute Neuts (auto) 13.6 H Absolute Nucleated RBC 0.0 Nucleated RBC % 0.0 Sodium 134 L 138 Potassium 3.9 3.6 Chloride 100 103 Carbon Dioxide 28 26 Anion Gap 6 L 9 BUN 5 L D 8 Creatinine 0.40 L 0.50 L Estim Creat Clear Calc 142 108 Estimated GFR > 60 > 60 Glucose 110 109 Calcium 9.0 8.8 Magnesium 2.1 Total Bilirubin 0.7 0.3 AST 39 H 57 H ALT 140 H 109 H Alkaline Phosphatase 98 86 Total Protein 7.6 7.0 Albumin 4.2 4.1 Patient Feedback: Patient satisfied with anesthetic care.
[2022-08-18 14:05] VITALS: BP 96/64; PULSE 68; RESP 18; TEMP 36.4; O2SAT 99
== END 2022-08-18 17:19 | disposition home or self-care (01) ==
LOC: ANHED 11:53 → ANH2MED 14:21
PROVIDERS: Physician Assistant; Surgery; Admitting Provider Family Medicine; Emergency Provider Physician Assistant; PCP Family Medicine; Visit Provider Student in an Organized Health Care Education/Training Program
PROC: 0FT44ZZ Resection of Gallbladder, Percutaneous Endoscopic Approach (ICD-10-PCS; CPT 47562; principal; 2022-08-17 09:00)
DX: K80.00 Calculus of gallbladder with acute cholecystitis without obstruction (principal); K82.1 Hydrops of gallbladder; D72.829 Elevated white blood cell count, unspecified; R03.0 Elevated blood-pressure reading, without diagnosis of hypertension; R74.01 Elevation of levels of liver transaminase levels; F17.210 Nicotine dependence, cigarettes, uncomplicated; F10.21 Alcohol dependence, in remission; Z79.51 Long term (current) use of inhaled steroids; Z79.891 Long term (current) use of opiate analgesic
CPT/HCPCS: 47562; 36415; 80053; 83690; 83735; 84702; 85025; 85027; 88304; 96361; 96365; 96366; 96367; 96375; 96376; 99285; A9270; G0378; G0379; J0696; J1100; J1170; J2250; J2270; J2405; J2550; J2704; J3010; J7030